=== PATIENT | female | born 1965 | race Caucasian/White ===

== ENCOUNTER 2020-08-28 04:37 | Emergency (ER) | payer BC ==
[~2020-08-28] VITALS: Ht 152.4 cm; Wt 108.9 kg
[2020-08-28 04:40] VITALS: BP_SYST 128
--- NOTE | 2020-08-28 04:40 | NUR ---
Patient to ER bed May RN to gown for evaluation. Side rails up. Report given to Meaghan.
--- NOTE | 2020-08-28 04:41 | NUR ---
Came in ER ambulatory from home this 54 year old, AAOX4, breathing spontaneously at room air, not in distress noted. With chief complaints of diarrhea for 3days and worsened tonight with nausea, generalized body malaise, No known medical/ no surgical history. Vital signs stable
--- NOTE | 2020-08-28 04:45 | NUR ---
Seen and examined by Dr. Jeronimo
[2020-08-28] MEDS ORDERED: NACL 0.9% 1,000 ML IV ONE (05:30)
--- NOTE | 2020-08-28 05:30 | NUR ---
# 20 gauge angiocath placed to left ac. Use of asceptic technique. Opsite placed over site. Blood return noted. Blood for lab drawn from site. Flushed with 10 cc of normal saline. No evidence of infiltration noted. Patient tolerated well.
[2020-08-28 05:56] LABS: BASOPHILS % (AUTO) 0.5 % (0.0-2.0); EOSINOPHILS # (AUTO) 0.2 K/uL (0.0-0.4); EOSINOPHILS % (AUTO) 3.2 % (0.0-4.0); HEMATOCRIT 34.5 % (36-48); HEMOGLOBIN 10.6 g/dL (12.0-16.0); LYMPHOCYTES # (AUTO) 1.6 K/uL (1.0-5.5); MEAN CORPUSCULAR HEMOGLOBIN 21 pg (27-31); MEAN CORPUSCULAR HGB CONC 31 % (32-36); MEAN CORPUSCULAR VOLUME 67 fL (79.0-98.0); MONOCYTES # (AUTO) 0.7 K/uL (0.0-1.0); MONOCYTES % (AUTO) 11.9 % (1.7-9.3); NEUTROPHILS # (AUTO) 3.6 K/uL (1.8-7.7); NEUTROPHILS % (AUTO) 58.4 % (40.0-70.0); PLATELET COUNT (AUTO) 232 K/uL (130-430); RED BLOOD CELL COUNT(AUTO) 5.14 MIL/uL (4.2-6.2); WHITE BLOOD COUNT (AUTO) 6.2 K/uL (4.8-10.8)
[2020-08-28 06:04] LABS: CALCIUM 9.1 mg/dL (8.4-11.0); CREATININE 0.8 mg/dL (0.55-1.30); POTASSIUM 3.5 mmol/L (3.5-5.1)
[2020-08-28 06:10] LABS: TOTAL BILIRUBIN 0.1 mg/dL (0.0-1.0)
[2020-08-28] MEDS ORDERED: MAG-AL HYDROX/SIMETH 30 ML UDC PO ONE (06:15)
[2020-08-28] MEDS ORDERED: LIDOCAINE VISCOUS 2%, 15 ML UDC MM ONE (06:15)
[2020-08-28] MEDS ORDERED: DICYCLOMINE HCL 10 MG/5 ML SOLUTION PO ONE (06:15)
--- NOTE | 2020-08-28 06:16 | NUR ---
Medications given as oredred, tolerated orally, health teaching provided and verbalized understanding
--- NOTE | 2020-08-28 06:23 | NUR ---
To restroom ambulatory, voided freely, urine sample collected and sent to lab
[2020-08-28 06:31] LABS: BILIRUBIN,URINE 1+ (NEGATIVE); BLOOD, URINE NEGATIVE (NEGATIVE); CLARITY/URINE SL CLOUDY (CLEAR); COLOR,URINE YELLOW (YELLOW); GLUCOSE,URINE NEGATIVE (NEGATIVE); KETONES,URINE NEGATIVE (NEGATIVE); LEUKOCYTE ESTERASE ,URINE NEGATIVE (NEGATIVE); NITRITE, URINE NEGATIVE (NEGATIVE); PROTEIN URINE 1+ (NEGATIVE); UROBILINOGEN,URINE 0.2 (0.2-1.0)
[2020-08-28 06:37] LABS: BACTERIA,URINE FEW /HPF (None Seen); RBC,URINE 0-3 /HPF (0-3); WBC,URINE 0-3 /HPF (0-3)
--- NOTE | 2020-08-28 06:45 | NUR ---
Re-assesed by Dr. Cantu
[2020-08-28] MEDS ORDERED: LOM2.5 PO (07:01)
[2020-08-28 07:13] VITALS: BP_SYST 124
--- NOTE | 2020-08-28 07:13 | NUR ---
Patient given written and verbal discharge instructions and verbalizes understanding. ER MD discussed with patient the results and treatment provided. Patient in stable condition. ID arm band removed. IV catheter removed intact and dressing applied, no active bleeding. Rx of Diphenoxylate hcl/atrop sulf given. Patient educated on pain management and to follow up with PMD. Pain Scale 0/10. Opportunity for questions provided and answered. Medication side effect fact sheet provided.
== END 2020-08-28 07:13 | disposition home or self-care (01) ==
LOC: SED 04:37
DX: R19.7 Diarrhea, unspecified (principal); R10.13 Epigastric pain
CPT/HCPCS: 36415; 80053; 81000; 83690; 85025; 96360; 99284; J2001; J7030